=== PATIENT | female | born 1990 | race Caucasian/White ===

== ENCOUNTER 2016-12-29 11:29 | Day surgery (SDC) | payer BC, OTHER ==
[2016-12-29 12:41] LABS: BASO # 0.1 K/uL (0.0-0.2); BASO % 0.7 % (0.0-2.0); EOS # 0.1 K/uL (0.0-0.7); EOS % 1.3 % (0.0-4.0); HEMATOCRIT 34.8 % (34.0-47.0); LYMPH # 1.6 K/uL (1.0-4.3); LYMPH % 20.5 % (20.0-40.0); MEAN CELL VOLUME 90.5 fL (81.0-99.0); MEAN CORPUSCULAR HEMOGLOBIN 30.8 pg (27.0-31.0); MEAN PLATELET VOLUME 7.1 fL (7.2-11.7); RED CELL DISTRIBUTION WIDTH 12.9 % (11.5-14.5)
[2016-12-29 12:44] LABS: CHLORIDE 102 mmol/L (98-107)
[2016-12-29 12:45] LABS: POTASSIUM 3.5 mmol/L (3.6-5.2); SODIUM 139 mmol/L (132-148)
[2016-12-29 12:46] LABS: INR 1.1; URINE BACTERIA RARE (<OCC); URINE BILIRUBIN NEGATIVE (NEGATIVE); URINE BLOOD 2+ (NEGATIVE); URINE COLOR Yellow (YELLOW); URINE GLUCOSE (UA) NORMAL (Normal); URINE KETONE NEGATIVE (NEGATIVE); URINE LEUKOCYTE ESTERASE 1+ Leu/uL (Negative); URINE PROTEIN NEGATIVE (NEGATIVE); URINE UROBILINOGEN NORMAL mg/dL (0.2-1.0); WBC URINE 1 /hpf (0-5)
[2016-12-29 12:48] LABS: ALB/GLOB RATIO 1.4 (1.0-2.1); ALKALINE PHOSPHATASE 55 U/L (38-126); ALT/SGPT 20 U/L (9-52); AST/SGOT 19 U/L (14-36); BILIRUBIN,TOTAL 0.5 mg/dL (0.2-1.3); BLOOD UREA NITROGEN 8 mg/dL (7-17); CALCIUM 8.9 mg/dl (8.6-10.4); CARBON DIOXIDE 23 mmol/L (22-30); GFR AFRICAN-AMERICAN > 60; GLUCOSE,RANDOM 84 mg/dL (65-105); TOTAL PROTEIN 7.3 g/dL (6.3-8.3)
[2016-12-29 12:50] LABS: RBC URINE 3 /hpf (0-3)
[2016-12-29] MEDS ORDERED: Sodium Chloride 0.9% 1,000 ML IV ONE (12:59)
[2016-12-29] MEDS ORDERED: Sodium Chloride 0.9% 1,000 ML ONE (13:04)
--- NOTE | 2016-12-29 13:31 | C.PDOC ---
History Of Present Illness 26 y/o female P0 presents to the ED complaining of right sided pelvic pain x 3 days. She reports that when the pain started it was "severe" so she went to [facility] for evaluation where they diagnosed her with complex ovarian cyst. Patient notes that the pain has somewhat improved over the last three days. Pt was seen by Dr. Webber RESEARCH TEST ENGINE EVALUATOR, today and was instructed to come to the ED for further evaluation. She denies any fever, vomiting, chest pain, vaginal discharge, or vaginal bleeding. Note that the patient last ate at 08:30 am today. Time Seen by Provider: 12/29/16 12:33 Chief Complaint (Nursing): Abdominal Pain History Per: Patient History/Exam Limitations: no limitations Onset/Duration Of Symptoms: Days (3), Intermittent Episodes, Persistent Recent travel outside of the [place]: No Past Medical History Reviewed: Historical Data, Nursing Documentation, Vital Signs Vital Signs: Last Vital Signs Temp 97.7 F 12/29/16 11:45 Pulse 90 12/29/16 11:45 Resp 16 12/29/16 11:45 BP 135/87 12/29/16 11:45 Pulse Ox 99 12/29/16 16:02 - Medical History PMH: Anxiety, Asthma Surgical History: No Surg Hx Family History: States: Unknown Family Hx - Social History Hx Tobacco Use: No Hx Alcohol Use: Yes Hx Substance Use: No - Immunization History Hx Influenza Vaccination: No Review Of Systems Except As Marked, All Systems Reviewed And Found Negative. Constitutional: Negative for: Fever Cardiovascular: Negative for: Chest Pain Respiratory: Negative for: Shortness of Breath Gastrointestinal: Negative for: Vomiting Genitourinary: Positive for: Pelvic Pain (right) Physical Exam - Physical Exam Appears: Non-toxic, No Acute Distress Skin: Normal Color, Warm, Dry Head: Atraumatic, Normacephalic Eye(s): bilateral: Normal Inspection, EOMI Nose: Normal Oral Mucosa: Moist Neck: Normal ROM Chest: Symmetrical Cardiovascular: Rhythm Regular Respiratory: Normal Breath Sounds, No Rales, No Rhonchi, No Wheezing Gastrointestinal/Abdominal: Soft, Tenderness (b/l lower quadrants, right greater than left) Back: Normal Inspection, No CVA Tenderness, No Vertebral Tenderness Extremity: Normal ROM Neurological/Psych: Oriented x3, Normal Speech, Normal Cognition ED Course And Treatment - Laboratory Results Result Diagrams: 12/29/16 12:31 12/29/16 12:31 O2 Sat by Pulse Oximetry: 99 - CT Scan/US Ultrasound Other Rad Studies (CT/US): Read By Radiologist (Raffaele Benavides MD), Radiology Report Reviewed CT/US Interpretation: FINDINGS: UTERUS: Measures 7.9 x 4.0 cm. Normal in size and appearance. No fibroid or other mass lesion seen. ENDOMETRIUM: Measures 8.6 mm in diameter. No ultrasound findings to suggest gestational sac, fluid, debris, mass or polyp or other pathologic process within the endometrium. CERVIX: No cervical abnormality identified. RIGHT OVARY: Measures 3.6 x 5.7 cm. Complex solid/ cystic mass 4.6 x 4.8 cm. Debris and septa, perhaps hemorrhagic components noted. Doppler arterial waveform is documented. Findings likely represent complex/hemorrhagic cyst. LEFT OVARY: Measures 3.4 x 2.5 cm. No solid mass. Normal flow. Multiple subcentimeter follicles. FREE FLUID: Trace free fluid identified in the pelvis/cul de sac. OTHER FINDINGS: None. IMPRESSION: Unremarkable pelvic ultrasound. PROCEDURE: Unremarkable uterus and left adnexa. Complex mass likely complex cyst with debris and perhaps blood components. No evidence of torsion. Progress Note: Plan: Blood Work, Urinalysis, U-Preg, Pelvis/Transvaginal Ultrasound, IV Fluids. Patient refusing any pain medication. Patient admitted to same day surgery under the care of Dr. Genna Webber for ovarion torsion. Disposition - Disposition Disposition: HOSPITALIZED Disposition Time: 15:30 Condition: STABLE - Clinical Impression Clinical Impression: Ovarian torsion, Ruptured ovarian cyst - PA / TAIL WORKER / Resident Statement MD/DO has reviewed & agrees with the documentation as recorded. - Scribe Statement The provider has reviewed the documentation as recorded by the Scribe (Dariela Bui) All medical record entries made by the Scribe were at my direction and personally dictated by me. I have reviewed the chart and agree that the record accurately reflects my personal performance of the history, physical exam, medical decision making, and the department course for this patient. I have also personally directed, reviewed, and agree with the discharge instructions and disposition.
[2016-12-29] MEDS ORDERED: Propofol 10 mg/ml Inj (20 ML) ONE (14:50)
[2016-12-29] MEDS ORDERED: Rocuronium 10 mg/ml (5 ml) ONE (14:50)
[2016-12-29] MEDS ORDERED: Succinylcholine Chloride 20 mg/ml Syr (5 ml) IV ONE (14:50)
[2016-12-29] MEDS ORDERED: Midazolam 2 MG/2 ML VIAL ONE (14:51)
--- NOTE | 2016-12-29 14:54 | CP.PCM.HP ---
History of Present Illness - History of Present Illness History of Present Illness: 26 y/o P0 with pelvic pain seen at [facility] on 12/26/16 and d/c home with ruptured ovarian cyst. Pt reports continued severe pelvic pain thourhogut weekened not allevated with OTC medciation or heating pad. Pt as evulated in office today with severe abodminla and pelvic pain and advised to go to ER to rule out oviaran torsion and US reports showed 6cm right ovary with 4cm ovarian cyst. pt reports nause, no vomiting, poor po intake, increased pain with walking. Pt reports constant pain but has intermitten bouts of worsening pain. Pt states pain originiated on Thursday while going to school. Pt reports pevious episode was dx with rutpured cyst, palced on low dose control but due to concerns of increasing blood pressure d/c medicatoin. Pt denies any current medicatoin. Pt denies any fevers, chlils, vomiting, constipaton, dirrhea, vaginal bleeding. 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 hx of abnorma pap, ovarian cyst, denies STI PMH: Denies PSH ;denies SHX negateive etoh/topbacco/drugs FHX: non contiruoyt MEDS: Motrin Present on Admission - Present on Admission Any Indicators Present on Admission: No Review of Systems - Constitutional Constitutional: As Per HPI - EENT Eyes: As Per HPI Ears: As Per HPI - Breasts Breasts: As Per HPI - Cardiovascular Cardiovascular: As Per HPI - Respiratory Respiratory: As Per HPI - Gastrointestinal Gastrointestinal: As Per HPI - Genitourinary Genitourinary: As Per HPI - Reproductive: Female Reproductive:Female: As Per HPI - Menstruation Menstruation: As Per HPI Past Patient History - Infectious Disease Hx of Infectious Diseases: None - Past Social History Smoking Status: Never Smoked Chewing Tobacco Use: No Cigar Use: No - PULMONARY Hx Asthma: Yes - PSYCHIATRIC Hx Anxiety: Yes Hx Substance Use: No Meds Allergies/Adverse Reactions: Allergies Allergy/AdvReac Type Severity Reaction Status Date / Time No Known Allergies Allergy Verified 12/29/16 12:00 Physical Exam - Constitutional Additional comments: mild distress due to pain - Head Exam Head Exam: ATRAUMATIC, NORMAL INSPECTION - Eye Exam Eye Exam: EOMI, Normal appearance Pupil Exam: NORMAL ACCOMODATION - ENT Exam ENT Exam: Mucous Membranes Moist, Normal Exam - Neck Exam Neck exam: Positive for: Normal Inspection - Respiratory Exam Respiratory Exam: Clear to Auscultation Bilateral, NORMAL BREATHING PATTERN - Cardiovascular Exam Cardiovascular Exam: REGULAR RHYTHM, +S1, +S2 - GI/Abdominal Exam GI & Abdominal Exam: Normal Bowel Sounds, Soft Additional comments: diffulsely ttp, no guarding, no reboudn tendenres,s no rigidity - Extremities Exam Extremities exam: Positive for: full ROM, normal inspection - Back Exam Back exam: NORMAL INSPECTION Results - Vital Signs Recent Vital Signs: Last Vital Signs Temp 97.7 F 12/29/16 11:45 Pulse 90 12/29/16 11:45 Resp 16 12/29/16 11:45 BP 135/87 12/29/16 11:45 Pulse Ox 99 12/29/16 14:06 - Labs Result Diagrams: 12/29/16 12:31 12/29/16 12:31 Labs: Laboratory Results - last 24 hr 12/29/16 12:31 WBC 8.0 RBC 3.85 Hgb 11.8 Hct 34.8 MCV 90.5 MCH 30.8 MCHC 34.0 RDW 12.9 Plt Count 312 MPV 7.1 L Neut % (Auto) 64.5 Lymph % (Auto) 20.5 [place] % (Auto) 13.0 H Eos % (Auto) 1.3 Baso % (Auto) 0.7 Neut # 5.2 Lymph # 1.6 [place] # 1.0 H Eos # 0.1 Baso # 0.1 PT 12.2 INR 1.1 APTT 29 Sodium 139 Potassium 3.5 L Chloride 102 Carbon Dioxide 23 Anion Gap 18 BUN 8 Creatinine 0.6 L Est GFR ( Amer) > 60 Est GFR (Non-Af Amer) > 60 Random Glucose 84 Calcium 8.9 Total Bilirubin 0.5 AST 19 ALT 20 Alkaline Phosphatase 55 Total Protein 7.3 Albumin 4.3 Globulin 3.0 Albumin/Globulin Ratio 1.4 Urine Color Yellow Urine Clarity Hazy Urine pH 6.0 Ur Specific [place] 1.018 Urine Protein Negative Urine Glucose (UA) Normal Urine Ketones Negative Urine Blood 2+ H Urine Nitrate Negative Urine Bilirubin Negative Urine Urobilinogen Normal Ur Leukocyte Esterase 1+ H Urine WBC (Auto) 1 Urine RBC (Auto) 3 Ur Squamous Epith Cells 6 H Urine Bacteria Rare Urine HCG, Qual Negative Blood Type O POSITIVE Antibody Screen Negative Assessment & Plan (1) Ovarian cyst Assessment and Plan: 1. Admit Dr Genna Webber 2. Patient Liaison to OR r/o ovarian torsion/ Ruptured ovarian cyst 3. NPO, IVF 4. OR/Anestehis aware 5. Pre op labs 6. US 7. SCD Status: Acute
[2016-12-29] MEDS ORDERED: ceFAZolin IV 1 gm in Dextrose 50 ML IVPB ONE (15:10)
[2016-12-29] MEDS ORDERED: Bupivacaine 0.5% Inj(30mL) ONE (15:10)
--- NOTE | 2016-12-29 15:59 | US ---
HISTORY: R/O OVARIAN TORSION. LMP December 06, 2016. COMPARISON: None available. TECHNIQUE: Transabdominal, transvaginal. Real -time technique with 2D, duplex and color Doppler. FINDINGS: UTERUS: Measures 7.9 x 4.0 cm. Normal in size and appearance. No fibroid or other mass lesion seen. ENDOMETRIUM: Measures 8.6 mm in diameter. No ultrasound findings to suggest gestational sac, fluid, debris, mass or polyp or other pathologic process within the endometrium. CERVIX: No cervical abnormality identified. RIGHT OVARY: Measures 3.6 x 5.7 cm. Complex solid/ cystic mass 4.6 x 4.8 cm. Debris and septa, perhaps hemorrhagic components noted. Doppler arterial waveform is documented. Findings likely represent complex/hemorrhagic cyst. LEFT OVARY: Measures 3.4 x 2.5 cm. No solid mass. Normal flow. Multiple subcentimeter follicles. FREE FLUID: Trace free fluid identified in the pelvis/cul de sac. OTHER FINDINGS: None. IMPRESSION: Unremarkable pelvic ultrasound. PROCEDURE: Unremarkable uterus and left adnexa. Complex mass likely complex cyst with debris and perhaps blood components. No evidence of torsion.
[2016-12-29] MEDS ORDERED: Atropine Sulfate 0.4 mg/ml (0.8mg/2ml) Syringe IV ONE (16:38)
[2016-12-29] MEDS ORDERED: Neostigmine Methylsulfate 3mg/3ml Syringe IV ONE (16:38)
[2016-12-29] MEDS ORDERED: Lactated Ringer's 1,000 ML IV ONE ×2 (17:14→18:34)
--- NOTE | 2016-12-29 17:18 | PCM.SURG1 ---
Surgeon's Initial Post Op Note - Surgeon's Notes Surgeon: ALANNA MCGINNIS MD Resident In Diagnostic Radiology: NELDA GROVES MD Type of Anesthesia: General Endo Pre-Operative Diagnosis: OVARIAN TORSION, RUPTURED OVARIAN CYST, PELVIC PAIN Operative Findings: 10 WEEK SIZE UTERUS, ENLARGED RIGHT OVARY WITH HEMORRHAIGIC RUPTURED CYST WITH BLEEDING, NORMAL LEFT OVARY, NORMAL TUBES BILATERALLY, NORMAL LIVER/GALLBLADDER. HEMOPERITONEUM 500CC CLOTS EVACUATED. DR NELDA GROVES WAS INSULATION WORKER APPRENTICE WAS PRESENT FOR ENTIRE CASE AND ESSENTIAL FOR GAINING ENTRY, HOLDING CAMERA, RETRACTION, EXPOSURE, OVARIAN DETORSION Post-Operative Diagnosis: SAME ABOVE Operation Performed: OPERATIVE LAPARASCOPY, EVACUATION OF PERITONEUM, RIGHT OVARIAN CYSTECTOMY, OVARIAN DETORSION Specimen/Specimens Removed: RIGHT OVARIAN CYST Estimated Blood Loss: EBL {In ML}: 20 Blood Products Given: N/A Post-Op Condition: Good Date of Surgery/Procedure: 12/29/16 Time of Surgery/Procedure: 15:00
[2016-12-29] MEDS ORDERED: Trimethobenzamide 200 mg/2 mL Inj IM PRN (17:19)
[2016-12-29] MEDS ORDERED: HYDROmorphone 0.5 mg/0.5 ml ISec ONE (17:30)
[2016-12-29] MEDS: HYDROmorphone 0.5 mg/0.5 ml ISec IVP PRN ×2 (17:53→18:10)
[2016-12-29] MEDS ORDERED: Dexamethasone 4 mg/1 ml IVP STA (19:50)
[2016-12-31 15:42] VITALS: O2SAT 100
[2016-12-31 15:44] VITALS: BP 136/85; PULSE 86; RESP 16; TEMP 97.8
--- NOTE | 2017-01-05 09:10 | OP ---
PROCEDURE DATE: 12/29/2016 SURGEON: Genna Webber MD. HEMATOLOGY SPECIALIST: Howard Rico MD. TYPE OF ANESTHESIA: General endotracheal. PREOPERATIVE DIAGNOSES: Ovarian torsion, ruptured ovarian cyst, pelvic pain, severe. POSTOPERATIVE DIAGNOSES: Ovarian torsion, ruptured ovarian cyst, pelvic pain, severe. OPERATIVE FINDINGS: Ten-week size uterus, enlarged right ovary 8cm with hemorrhagic cyst, hemoperitoneum approximately 500 mL of clots evacuated from anterior and posterior cul-de-sac, normal left ovary, normal tubes bilaterally, normal liver gallbladder. Dr. Howard Rico who was ophthalmic surgical assistant was present for the entire case and was essential for gaining entry, holding the camera, retraction, exposure, ovarian detorsion, removing specimen with right enlarged hemorrhagic cyst approximately 8 cm. OPERATION PERFORMED: Operative laparoscopy, evacuation of hemoperitoneum, right ovarian cystectomy, ovarian detorsion. SPECIMEN REMOVED: Right ovarian cyst. ESTIMATED BLOOD LOSS: 20 mL. BLOOD PRODUCTS: None. COMPLICATIONS: None. DESCRIPTION OF THE PROCEDURE: The patient is a 26-year-old para 0 who presented to [facility] on Thursday complaining of severe pelvic pain, and was subsequently discharged with a ruptured hemorrhagic cyst, and precautions were given. The patient then followed up with me in the office in which an exam noted extreme abdominal tenderness and pelvic tenderness with an acute abdomen. The patient was counseled on ovarian torsion versus ruptured hemorrhagic cyst with both possibilities, and was sent to the Emergency Room for intervention. After informed consent was obtained and all questions were answered to the patient's ____ in layman's terms, she was taken to the operating room where general anesthesia was obtained without any difficulty. She was placed in the dorsal lithotomy position with the use of Edwar stirrups and prepped and draped in the usual normal sterile fashion. A Lopez catheter was then inserted in the urethra to drain the bladder, and she was examined under anesthesia and noted to have a right adnexal mass, enlarged to the midline. A weighted speculum was then placed in the patient's vagina, and excellent visualization of the cervix. The cervix was grasped at 12 o'clock with a single-tooth tenaculum and pulled into the operative field. The uterus was then sounded, and a uterine elevator was then placed. The single-tooth tenaculum was removed. There was good hemostasis at the tenaculum and puncture sites. The weighted speculum was removed. Attention was then turned to the abdomen where a 1-cm infraumbilical incision was made in the infraumbilical fold after local anesthesia of Marcaine 0.5 was administered. The Veress step needle was then placed into the abdomen while the abdomen was being tented up with 2 towel clamps. After insertion of the Veress needle, placement was then confirmed by entering normal saline through the Veress needle, which went down. The CO2 was then turned on with ____ flow and excellent pressures. This was continued until a normal symmetrical pneumoperitoneum was obtained. Then, a 12-mm step trocar and sleeve were then placed in the infraumbilical ____ after the skin incision was extended laterally with the scalpel without any difficulty, and placement was confirmed by laparoscope. Laparoscopic findings were noted as above. A left lower quadrant incision was made with a knife, and a 5-mm step trocar and sleeve were placed under direct visualization. A right lower quadrant 5-mm skin incision was made after administering local anesthesia, and the trocar and sleeve were then inserted under direct visualization. A grasper was then used to untorse the enlarged right ovary, as it was pulled down, and the superior portion in close proximity to the tube noted to have discoloration was gently untorsed. The ovary had good perfusion once the ovarian detorsion occurred. The hemoperitoneum was evacuated using a suction [employer] consultant, and approximately 500 mL of clots were removed. Upon closer inspection, there was a hemorrhagic cyst noted within the ovary that was detorsed. The ovary was mobilized out of the pelvis, and approximately a 1-cm incision was made along the ovary using electrocautery. At this point, it was dissected initially with hydrodissection and using blunt dissection. Entry into the cyst was created using electrocautery. Suction was used to help drain the fluid from the cyst. However, with suction, large globular blood pieces were noted of coagulated blood, and were removed. The remaining was then placed in the anterior cul-de- sac. The cyst was identified and was removed using blunt dissection with countertraction. The ovarian bed was then irrigated and dried. There was slight oozing noted near the edge of the ovary in which hemostasis was obtained using electrocautery. The 8-cm enlarged hemorrhagic cyst appeared much smaller once the cyst was removed, and the blood had been evacuated. The pelvis was then irrigated, and once hemostasis was assured, the specimen was removed through the 12-mm port of the cyst wall component. The pelvis was then again copiously irrigated and dried. Hemostasis was assured. All instruments were removed under direct visualization. A 12-mm infraumbilical incision fascia was closed using 0 Vicryl suture. The skin was reapproximated and closed with 4-0 Monocryl. Abdomen was cleaned, and Steri-Strips were applied to each of the incisions followed by Band-Aids. All instruments were removed including the uterine elevator. There was good hemostasis noted. The patient was then cleaned. The patient tolerated the procedure well without any complications and was transferred to the recovery room in stable condition. Genna Webber MD cc: [id number] TT: 01/03/2017 09:05:27 jn MTDD
== END 2016-12-29 21:35 | disposition home or self-care (01) ==
LOC: C.ER 11:29 → C.SDS 14:35
PROVIDERS: ATTEND Obstetrics & Gynecology
DX: N83.511 Torsion of right ovary and ovarian pedicle (principal); N83.8 Other noninflammatory disorders of ovary, fallopian tube and broad ligament; R10.2 Pelvic and perineal pain
CPT/HCPCS: 58662; 58999; 76830; 76856; 80053; 81001; 84703; 85025; 85610; 85730; 86850; 86900; 88305; 96360; 99285; C1713; J0690; J1100; J1170; J1885; J2250; J2405; J2704; J2710; J3010; J3250; J7040; J7120